=== PATIENT | male | born 1965 | race African-American/Black ===

== ENCOUNTER 2017-09-05 13:20 | Inpatient (IN) | payer MEDICAID, MEDICARE ==
[~2017-09-05] VITALS: Ht 180.3 cm; Wt 71.7 kg
[2017-09-05 14:49] LABS: BASOPHILS % (AUTO) 0.2 % (0.0-2.0); EOSINOPHILS % (AUTO) 0.5 % (1.0-6.0); HEMATOCRIT 41.8 % (41-53); LYMPHOCYTES # (AUTO) 1.4 K/uL (1.0-4.8); LYMPHOCYTES % (AUTO) 26.4 % (22.0-44.0); MEAN CORPUSCULAR HGB CONC 33.5 G/dL (31.0-37.0); MEAN CORPUSCULAR VOLUME 87 fL (80-100); MONOCYTES # (AUTO) 0.4 K/uL (0.1-1.0); MONOCYTES % (AUTO) 7.6 % (2.0-9.0); NEUTROPHILS # (AUTO) 3.6 K/uL (1.8-7.7); NEUTROPHILS % (AUTO) 65.3 % (40.0-70.0); PLATELET COUNT (AUTO) 321 K/uL (150-450); RED BLOOD CELL COUNT(AUTO) 4.83 MIL/uL (4.50-5.90); RED CELL DISTRIBUTION WIDTH 14.3 % (11.5-14.5)
[2017-09-05 14:57] LABS: AMPHET/METH SCREEN,URINE NEGATIVE (NEGATIVE); BARBITURATE SCREEN, URINE NEGATIVE (NEGATIVE); BENZODIAZEPINES SCREEN,URINE NEGATIVE (NEGATIVE); CANNABINOID SCREEN,URINE POSITIVE (NEGATIVE); COCAINE SCREEN,URINE NEGATIVE (NEGATIVE); METHADONE SCREEN, URINE NEGATIVE (NEGATIVE); OPIATE SCREEN,URINE NEGATIVE (NEGATIVE)
[2017-09-05 15:01] LABS: ANION GAP 4 mmol/L (8-16); CALCIUM, TOTAL 8.6 mg/dL (8.8-10.5); CARBON DIOXIDE 30 mmol/L (22-29); CHLORIDE 104 mmol/L (98-107); CREATININE 1.01 mg/dL (0.60-1.30); GLOMERULAR FILTR. RATE CALC > 60 mL/min (>60); GLUCOSE,RANDOM 89 mg/dL (70-110); POTASSIUM 3.8 mmol/L (3.5-5.1); SODIUM SERUM 138 mmol/L (136-145); UREA NITROGEN, BLOOD 11 mg/dL (7-18)
[2017-09-05 15:02] LABS: PHENCYCLIDINE SCREEN,URINE NEGATIVE (NEGATIVE)
[2017-09-05 15:03] LABS: ALANINE AMINOTRANSFERASE 31 U/L (12-78); ALBUMIN 3.5 g/dL (3.4-5.0); ALKALINE PHOSPHATASE 82 U/L (46-116); ASPARTATE AMINOTRANSFERASE 22 U/L (15-37); BILIRUBIN,TOTAL 0.6 mg/dL (0.1-1.0); TOTAL PROTEIN, SERUM 7.3 g/dL (6.4-8.2)
[2017-09-05] MEDS ORDERED: LORazepam 1 MG TABLET PO ONE (15:15)
[2017-09-05] MEDS ORDERED: OLANZapine 5 MG TABLET PO ONE (15:15)
[2017-09-05] MEDS ORDERED: ZOLPIDEM TARTRATE 10 MG TABLET PO PRN (15:45)
[2017-09-05 17:51] VITALS: BP 127/78
[2017-09-05] MEDS: OLANZapine 10 MG TABLET PO SCH (20:43)
[2017-09-06 06:39] VITALS: BP 108/66
[2017-09-06 08:04] VITALS: BP 110/68
[2017-09-06 08:24] LABS: CHOL/HDL RATIO 2.8 (4.2-7.3)
[2017-09-06] MEDS: OLANZapine 5 MG RAPDIS TABLET PO PRN (10:33)
[2017-09-06] MEDS: LORazepam 2 MG TABLET PO PRN (10:33)
[2017-09-06 16:00] VITALS: BP 113/69
[2017-09-06] MEDS: OLANZapine 10 MG TABLET PO SCH (20:10)
[2017-09-07 06:18] VITALS: BP 116/76
[2017-09-07 08:04] VITALS: BP 113/67
[2017-09-07] MEDS: OLANZapine 5 MG RAPDIS TABLET PO PRN (10:55)
[2017-09-07] MEDS: LORazepam 2 MG TABLET PO PRN ×2 (10:55→16:06)
[2017-09-07] MEDS: OLANZapine 10 MG TABLET PO SCH (16:06)
[2017-09-07 21:02] VITALS: BP 100/62
[2017-09-08 06:18] VITALS: BP 140/83
[2017-09-08 08:04] VITALS: BP 95/67
[2017-09-08] MEDS: SERTRALINE HCL 50 MG TABLET PO SCH (08:48)
[2017-09-08] MEDS: OLANZapine 10 MG TABLET PO SCH ×2 (08:48→17:01)
[2017-09-08] MEDS: LORazepam 2 MG TABLET PO PRN ×2 (10:12→17:01)
[2017-09-08 16:00] VITALS: BP 105/65
[2017-09-09 06:24] VITALS: BP 126/7
[2017-09-09 08:00] VITALS: BP 121/66
[2017-09-09] MEDS: LORazepam 2 MG TABLET PO PRN ×2 (09:35→16:49)
[2017-09-09] MEDS: SERTRALINE HCL 50 MG TABLET PO SCH (09:35)
[2017-09-09] MEDS: OLANZapine 10 MG TABLET PO SCH ×2 (09:35→16:49)
[2017-09-09 16:00] VITALS: BP 110/69
[2017-09-10 03:08] VITALS: BP 114/70
[2017-09-10 08:10] VITALS: BP 109/64
[2017-09-10] MEDS: OLANZapine 10 MG TABLET PO SCH ×2 (08:43→16:20)
[2017-09-10] MEDS: SERTRALINE HCL 50 MG TABLET PO SCH (08:43)
[2017-09-10 16:00] VITALS: BP 112/65
[2017-09-10] MEDS: LORazepam 2 MG TABLET PO PRN (16:21)
[2017-09-11 06:17] VITALS: BP 115/63
[2017-09-11] MEDS: OLANZapine 10 MG TABLET PO SCH ×2 (08:35→16:13)
[2017-09-11] MEDS: SERTRALINE HCL 50 MG TABLET PO SCH (08:36)
[2017-09-11 08:48] VITALS: BP 111/58
[2017-09-11 16:00] VITALS: BP 135/79
[2017-09-11] MEDS: LORazepam 2 MG TABLET PO PRN (16:13)
[2017-09-12 05:37] VITALS: BP 122/74
[2017-09-12] MEDS: SERTRALINE HCL 50 MG TABLET PO SCH (08:12)
[2017-09-12] MEDS: OLANZapine 10 MG TABLET PO SCH ×2 (08:12→16:00)
[2017-09-12 08:16] VITALS: BP 110/61
[2017-09-12 16:00] VITALS: BP 130/78
[2017-09-12] MEDS: LORazepam 2 MG TABLET PO PRN (16:17)
[2017-09-13 06:21] VITALS: BP 109/66
[2017-09-13 08:03] VITALS: BP 122/76
[2017-09-13] MEDS: OLANZapine 10 MG TABLET PO SCH ×2 (08:28→16:26)
[2017-09-13] MEDS: SERTRALINE HCL 50 MG TABLET PO SCH (08:28)
[2017-09-13] MEDS: LORazepam 2 MG TABLET PO PRN ×2 (08:28→16:27)
[2017-09-13 16:00] VITALS: BP 138/74
[2017-09-14 06:42] VITALS: BP 124/66
[2017-09-14 08:04] VITALS: BP 117/85
[2017-09-14] MEDS: LORazepam 2 MG TABLET PO PRN ×3 (08:42→16:48)
[2017-09-14] MEDS: OLANZapine 10 MG TABLET PO SCH ×2 (08:42→16:48)
[2017-09-14] MEDS: SERTRALINE HCL 50 MG TABLET PO SCH (08:42)
[2017-09-14] MEDS: OLANZapine 5 MG RAPDIS TABLET PO PRN (12:47)
[2017-09-14 16:10] VITALS: BP 122/76
[2017-09-15 06:21] VITALS: BP 117/74
[2017-09-15 08:10] VITALS: BP 140/84
[2017-09-15] MEDS: OLANZapine 10 MG TABLET PO SCH ×2 (09:20→16:02)
[2017-09-15] MEDS: LORazepam 2 MG TABLET PO PRN (09:21)
[2017-09-15] MEDS: SERTRALINE HCL 50 MG TABLET PO SCH (09:21)
[2017-09-15 16:00] VITALS: BP 133/72
[2017-09-16 06:26] VITALS: BP 119/77
[2017-09-16 08:11] VITALS: BP 135/79
[2017-09-16] MEDS: SERTRALINE HCL 50 MG TABLET PO SCH (09:03)
[2017-09-16] MEDS: OLANZapine 10 MG TABLET PO SCH ×2 (09:04→16:18)
[2017-09-16] MEDS ORDERED: ZOLPIDEM TARTRATE 10 MG TABLET PO PRN (15:45)
[2017-09-16] MEDS: LORazepam 2 MG TABLET PO PRN (16:19)
[2017-09-16 16:47] VITALS: BP 122/88
[2017-09-17 01:50] VITALS: BP 103/65
[2017-09-17 09:03] VITALS: BP 111/75
[2017-09-17] MEDS: OLANZapine 10 MG TABLET PO SCH ×2 (10:05→16:36)
[2017-09-17] MEDS: SERTRALINE HCL 50 MG TABLET PO SCH (10:05)
[2017-09-17 16:00] VITALS: BP 114/81
[2017-09-17] MEDS: DIVALPROEX SODIUM 250 MG ER TABLET PO SCH (16:36)
[2017-09-18 06:42] VITALS: BP 137/79
[2017-09-18] MEDS: SERTRALINE HCL 50 MG TABLET PO SCH (08:26)
[2017-09-18] MEDS: OLANZapine 10 MG TABLET PO SCH ×2 (08:26→17:14)
[2017-09-18] MEDS: DIVALPROEX SODIUM 250 MG ER TABLET PO SCH ×2 (08:26→17:14)
[2017-09-18] MEDS: LORazepam 2 MG TABLET PO PRN (08:26)
[2017-09-18 08:38] VITALS: BP 123/72
[2017-09-18 16:29] VITALS: BP 108/82
[2017-09-19] MEDS: LORazepam 2 MG TABLET PO PRN (02:17)
[2017-09-19 02:21] VITALS: BP 121/68
[2017-09-19 07:53] LABS: BASOPHILS % (AUTO) 0.3 % (0.0-2.0); EOSINOPHILS % (AUTO) 0.7 % (1.0-6.0); HEMATOCRIT 39.2 % (41-53); HEMOGLOBIN 13.2 g/dL (13.5-17.5); LYMPHOCYTES # (AUTO) 2.5 K/uL (1.0-4.8); LYMPHOCYTES % (AUTO) 33.5 % (22.0-44.0); MEAN CORPUSCULAR HEMOGLOBIN 29.3 pg (26.0-34.0); MEAN CORPUSCULAR HGB CONC 33.8 G/dL (31.0-37.0); MEAN CORPUSCULAR VOLUME 87 fL (80-100); MONOCYTES # (AUTO) 0.7 K/uL (0.1-1.0); MONOCYTES % (AUTO) 9.2 % (2.0-9.0); NEUTROPHILS # (AUTO) 4.3 K/uL (1.8-7.7); NEUTROPHILS % (AUTO) 56.3 % (40.0-70.0); PLATELET COUNT (AUTO) 345 K/uL (150-450); RED BLOOD CELL COUNT(AUTO) 4.52 MIL/uL (4.50-5.90); RED CELL DISTRIBUTION WIDTH 15.5 % (11.5-14.5)
[2017-09-19 08:11] LABS: ALANINE AMINOTRANSFERASE 32 U/L (12-78); ALBUMIN 3.1 g/dL (3.4-5.0); ALKALINE PHOSPHATASE 111 U/L (46-116); ANION GAP 6 mmol/L (8-16); ASPARTATE AMINOTRANSFERASE 21 U/L (15-37); BILIRUBIN,TOTAL 0.2 mg/dL (0.1-1.0); CALCIUM, TOTAL 8.4 mg/dL (8.8-10.5); CARBON DIOXIDE 30 mmol/L (22-29); CHLORIDE 108 mmol/L (98-107); CREATININE 0.96 mg/dL (0.60-1.30); GLOMERULAR FILTR. RATE CALC > 60 mL/min (>60); GLUCOSE,RANDOM 85 mg/dL (70-110); POTASSIUM 4.4 mmol/L (3.5-5.1); SODIUM SERUM 144 mmol/L (136-145); TOTAL PROTEIN, SERUM 6.8 g/dL (6.4-8.2); UREA NITROGEN, BLOOD 17 mg/dL (7-18); VALPROIC ACID 21 mcg/mL (50-100)
[2017-09-19 08:56] VITALS: BP 111/67
[2017-09-19] MEDS: DIVALPROEX SODIUM 250 MG ER TABLET PO SCH (09:05)
[2017-09-19] MEDS: OLANZapine 10 MG TABLET PO SCH ×2 (09:05→18:09)
[2017-09-19] MEDS: SERTRALINE HCL 50 MG TABLET PO SCH (09:05)
[2017-09-19 16:15] VITALS: BP 121/85
[2017-09-19] MEDS: DIVALPROEX SODIUM 500 MG ER TABLET PO SCH (18:09)
[2017-09-19 21:00] VITALS: BP 109/76
[2017-09-20 01:30] VITALS: BP 104/64
[2017-09-20 08:00] VITALS: BP 121/69
[2017-09-20] MEDS: OLANZapine 10 MG TABLET PO SCH ×2 (09:12→17:03)
[2017-09-20] MEDS: DIVALPROEX SODIUM 500 MG ER TABLET PO SCH ×2 (09:12→17:02)
[2017-09-20] MEDS: SERTRALINE HCL 50 MG TABLET PO SCH (09:12)
[2017-09-20] MEDS: LORazepam 2 MG TABLET PO PRN ×2 (09:12→17:03)
[2017-09-20 16:21] VITALS: BP 118/74
[2017-09-21 05:46] VITALS: BP 102/56
[2017-09-21 08:31] VITALS: BP 109/60
[2017-09-21] MEDS: DIVALPROEX SODIUM 500 MG ER TABLET PO SCH ×2 (09:00→17:00)
[2017-09-21] MEDS: OLANZapine 10 MG TABLET PO SCH ×2 (09:00→17:00)
[2017-09-21] MEDS: SERTRALINE HCL 50 MG TABLET PO SCH (09:00)
[2017-09-21 16:40] VITALS: BP 104/60
[2017-09-22 02:25] VITALS: BP 100/60
[2017-09-22 08:54] VITALS: BP 123/80
[2017-09-22] MEDS: DIVALPROEX SODIUM 500 MG ER TABLET PO SCH (09:00)
[2017-09-22] MEDS: OLANZapine 10 MG TABLET PO SCH ×2 (09:00→16:40)
[2017-09-22] MEDS: SERTRALINE HCL 50 MG TABLET PO SCH (09:01)
[2017-09-22 16:15] VITALS: BP 108/66
[2017-09-22] MEDS: DIVALPROEX SODIUM 250 MG ER TABLET PO SCH (16:40)
[2017-09-22] MEDS: LORazepam 2 MG TABLET PO PRN (16:40)
[2017-09-23 02:25] VITALS: BP 110/68
[2017-09-23 08:53] VITALS: BP 124/70
[2017-09-23] MEDS: OLANZapine 10 MG TABLET PO SCH ×2 (09:49→16:51)
[2017-09-23] MEDS: DIVALPROEX SODIUM 250 MG ER TABLET PO SCH ×2 (09:50→16:51)
[2017-09-23] MEDS: SERTRALINE HCL 50 MG TABLET PO SCH (09:50)
[2017-09-23 16:18] VITALS: BP 122/83
[2017-09-24 06:38] VITALS: BP 126/75
[2017-09-24 08:00] VITALS: BP 111/64
[2017-09-24] MEDS: DIVALPROEX SODIUM 250 MG ER TABLET PO SCH ×2 (08:38→16:53)
[2017-09-24] MEDS: OLANZapine 10 MG TABLET PO SCH ×2 (08:39→16:53)
[2017-09-24] MEDS: SERTRALINE HCL 50 MG TABLET PO SCH (08:39)
[2017-09-24 16:40] VITALS: BP 125/79
[2017-09-25 06:50] VITALS: BP 127/77
[2017-09-25 08:00] VITALS: BP 128/60
[2017-09-25] MEDS: SERTRALINE HCL 50 MG TABLET PO SCH (10:01)
[2017-09-25] MEDS: DIVALPROEX SODIUM 250 MG ER TABLET PO SCH ×2 (10:01→16:20)
[2017-09-25] MEDS: OLANZapine 10 MG TABLET PO SCH ×2 (10:03→16:20)
[2017-09-25 16:13] VITALS: BP 140/83
[2017-09-26 07:06] VITALS: BP 121/62
[2017-09-26 09:05] VITALS: BP 112/60
[2017-09-26] MEDS: OLANZapine 10 MG TABLET PO SCH ×2 (09:06→16:14)
[2017-09-26] MEDS: DIVALPROEX SODIUM 250 MG ER TABLET PO SCH ×2 (09:06→16:14)
[2017-09-26] MEDS: SERTRALINE HCL 50 MG TABLET PO SCH (09:06)
[2017-09-26 16:20] VITALS: BP 117/79
[2017-09-27 05:02] VITALS: BP 118/76
[2017-09-27 08:36] VITALS: BP 132/83
[2017-09-27] MEDS: OLANZapine 10 MG TABLET PO SCH ×2 (09:40→16:39)
[2017-09-27] MEDS: DIVALPROEX SODIUM 250 MG ER TABLET PO SCH ×2 (09:41→16:39)
[2017-09-27] MEDS: SERTRALINE HCL 50 MG TABLET PO SCH (09:41)
[2017-09-27] MEDS: LORazepam 2 MG TABLET PO PRN (16:39)
[2017-09-27 20:45] VITALS: BP 133/86
[2017-09-28 06:10] VITALS: BP 126/82
[2017-09-28 08:11] VITALS: BP 138/60
[2017-09-28] MEDS: SERTRALINE HCL 50 MG TABLET PO SCH (08:55)
[2017-09-28] MEDS: OLANZapine 10 MG TABLET PO SCH ×2 (08:57→16:36)
[2017-09-28] MEDS: DIVALPROEX SODIUM 250 MG ER TABLET PO SCH ×2 (08:58→16:36)
[2017-09-28 16:18] VITALS: BP 105/69
[2017-09-28] MEDS: LORazepam 2 MG TABLET PO PRN (16:37)
[2017-09-29 05:54] VITALS: BP 131/86
[2017-09-29 08:18] VITALS: BP 111/63
[2017-09-29] MEDS: SERTRALINE HCL 50 MG TABLET PO SCH (09:53)
[2017-09-29] MEDS: DIVALPROEX SODIUM 250 MG ER TABLET PO SCH ×2 (09:53→16:55)
[2017-09-29] MEDS: OLANZapine 10 MG TABLET PO SCH ×2 (09:53→16:56)
[2017-09-29 16:00] VITALS: BP 118/68
[2017-09-29] MEDS: LORazepam 2 MG TABLET PO PRN (16:56)
[2017-09-30 06:23] VITALS: BP 121/62
[2017-09-30 08:35] VITALS: BP 137/65
[2017-09-30] MEDS: SERTRALINE HCL 50 MG TABLET PO SCH (08:43)
[2017-09-30] MEDS: OLANZapine 10 MG TABLET PO SCH ×2 (08:43→17:00)
[2017-09-30] MEDS: DIVALPROEX SODIUM 250 MG ER TABLET PO SCH ×2 (08:43→17:00)
[2017-09-30 16:36] VITALS: BP 134/70
[2017-10-01 00:13] VITALS: BP 121/72
[2017-10-01 08:44] VITALS: BP 117/69
[2017-10-01] MEDS: DIVALPROEX SODIUM 250 MG ER TABLET PO SCH ×2 (09:06→16:30)
[2017-10-01] MEDS: SERTRALINE HCL 50 MG TABLET PO SCH (09:06)
[2017-10-01] MEDS: OLANZapine 10 MG TABLET PO SCH ×2 (09:06→16:30)
[2017-10-01 16:23] VITALS: BP 132/88
[2017-10-02 05:59] VITALS: BP 103/56
[2017-10-02 08:45] VITALS: BP 135/75
[2017-10-02] MEDS: SERTRALINE HCL 50 MG TABLET PO SCH (08:55)
[2017-10-02] MEDS: OLANZapine 10 MG TABLET PO SCH ×2 (08:56→17:17)
[2017-10-02] MEDS: DIVALPROEX SODIUM 250 MG ER TABLET PO SCH ×2 (08:56→17:18)
[2017-10-02 16:20] VITALS: BP 126/81
[2017-10-03 06:32] VITALS: BP 121/78
[2017-10-03] MEDS: OLANZapine 10 MG TABLET PO SCH ×2 (08:23→16:21)
[2017-10-03] MEDS: DIVALPROEX SODIUM 500 MG ER TABLET PO SCH ×2 (08:23→16:21)
[2017-10-03] MEDS: LORazepam 2 MG TABLET PO PRN ×2 (08:23→16:21)
[2017-10-03] MEDS: SERTRALINE HCL 50 MG TABLET PO SCH (08:23)
[2017-10-03 08:55] VITALS: BP 132/82
[2017-10-03 16:06] VITALS: BP 115/60
[2017-10-04 00:30] VITALS: BP 134/78
[2017-10-04 08:33] VITALS: BP 131/88
[2017-10-04] MEDS: OLANZapine 10 MG TABLET PO SCH ×2 (09:41→16:13)
[2017-10-04] MEDS: DIVALPROEX SODIUM 500 MG ER TABLET PO SCH ×2 (09:41→16:13)
[2017-10-04] MEDS: SERTRALINE HCL 50 MG TABLET PO SCH (09:41)
[2017-10-04 16:13] VITALS: BP 105/67
[2017-10-05 02:47] VITALS: BP 100/67
[2017-10-05 08:34] VITALS: BP 119/79
[2017-10-05] MEDS: OLANZapine 10 MG TABLET PO SCH ×2 (08:40→16:17)
[2017-10-05] MEDS: SERTRALINE HCL 50 MG TABLET PO SCH (08:40)
[2017-10-05] MEDS: DIVALPROEX SODIUM 500 MG ER TABLET PO SCH ×2 (08:40→16:17)
[2017-10-05 16:05] VITALS: BP 131/78
[2017-10-06 06:14] VITALS: BP 103/60
[2017-10-06 08:57] VITALS: BP 118/74
[2017-10-06] MEDS: SERTRALINE HCL 50 MG TABLET PO SCH (09:16)
[2017-10-06] MEDS: DIVALPROEX SODIUM 500 MG ER TABLET PO SCH ×2 (09:16→16:59)
[2017-10-06] MEDS: OLANZapine 10 MG TABLET PO SCH ×2 (09:17→16:59)
[2017-10-06 16:19] VITALS: BP 114/60
[2017-10-07 06:46] VITALS: BP 120/81
[2017-10-07] MEDS: DIVALPROEX SODIUM 500 MG ER TABLET PO SCH ×2 (08:58→16:22)
[2017-10-07 08:59] VITALS: BP 131/73
[2017-10-07] MEDS: OLANZapine 10 MG TABLET PO SCH ×2 (08:59→16:22)
[2017-10-07] MEDS: SERTRALINE HCL 50 MG TABLET PO SCH (08:59)
[2017-10-07] MEDS: LORazepam 2 MG TABLET PO PRN (09:53)
[2017-10-07 16:30] VITALS: BP 136/81
[2017-10-08 06:08] VITALS: BP 114/62
[2017-10-08 08:22] VITALS: BP 106/65
[2017-10-08] MEDS: SERTRALINE HCL 50 MG TABLET PO SCH (09:24)
[2017-10-08] MEDS: DIVALPROEX SODIUM 500 MG ER TABLET PO SCH ×2 (09:24→16:19)
[2017-10-08] MEDS: OLANZapine 10 MG TABLET PO SCH ×2 (09:24→16:19)
[2017-10-08 16:00] VITALS: BP 110/70
[2017-10-08] MEDS: LORazepam 2 MG TABLET PO PRN (16:19)
[2017-10-09 01:28] VITALS: BP 117/65
[2017-10-09 09:01] VITALS: BP 101/60
[2017-10-09] MEDS: SERTRALINE HCL 50 MG TABLET PO SCH (09:42)
[2017-10-09] MEDS: DIVALPROEX SODIUM 500 MG ER TABLET PO SCH (09:43)
[2017-10-09] MEDS: OLANZapine 10 MG TABLET PO SCH (09:45)
[2017-10-09] MEDS ORDERED: DIVA500T69 PO (10:42)
[2017-10-09] MEDS ORDERED: SERT100T12 PO (10:42)
[2017-10-09] MEDS ORDERED: OLAN10TA3 PO (10:42)
[2017-10-09] MEDS ORDERED: OLANZapine 10 MG TABLET PO SCH (17:00)
[2017-10-09] MEDS ORDERED: DIVALPROEX SODIUM 500 MG ER TABLET PO SCH (17:00)
[2017-10-10] MEDS ORDERED: SERTRALINE HCL 100 MG TABLET PO SCH (09:00)
== END 2017-10-09 13:35 | disposition home or self-care (01) | DRG 885 ==
LOC: EMS 13:20 → B3A 16:45 → B2S 09-16 10:00
PROVIDERS: ADMIT Psychiatry & Neurology Psychiatry; ATTEND Psychiatry & Neurology Psychiatry
DX: F20.0 Paranoid schizophrenia (principal); F15.90 Other stimulant use, unspecified, uncomplicated; F12.90 Cannabis use, unspecified, uncomplicated; R45.87 Impulsiveness; Z79.899 Other long term (current) drug therapy; Z59.0 Homelessness
CPT/HCPCS: 87081; 99285; G0480